=== PATIENT | male | born 1980 | race Caucasian/White ===

== ENCOUNTER 2019-09-10 20:33 | Emergency (ER) | payer OTHER ==
[~2019-09-10] VITALS: Ht 175.3 cm; Wt 113.4 kg
[2019-09-10 21:13] VITALS: BP_SYST 135
--- NOTE | 2019-09-10 21:22 | NUR ---
Placed in room 3 . Placed on padded products inspector trimmer, blood pressure machine and pulse oximeter. To gown for exam. Side rails up.
--- NOTE | 2019-09-10 21:25 | NUR ---
BROUGHT IN BY AMBULANCE FOR BILATERAL HAND CRAMPING,ETOH INTOXICATION.PLACED IN BED 3 AND HOOKED TO THE MONITOR. SEIZURE PRECAUTION IMPLEMENTED.
--- NOTE | 2019-09-10 21:26 | NUR ---
CAME BY BEDSIDE TO EVALUATE PT.
--- NOTE | 2019-09-10 21:50 | NUR ---
GAUGE 18 IV LINE ESTABLISHED TO THE RIGHT FOREARM. BLOOD DRAW ATTEMPTED BUT UNABLE. BLOOD DRAWN BY BILLING ASSOCIATE.
[2019-09-10 22:08] LABS: BASOPHILS % (AUTO) 0.6 % (0.0-2.0); EOSINOPHILS # (AUTO) 0.3 K/uL (0.0-0.4); EOSINOPHILS % (AUTO) 4.3 % (0.0-4.0); HEMATOCRIT 46.2 % (36-54); HEMOGLOBIN 15.6 g/dL (14.0-18.0); LYMPHOCYTES % (AUTO) 49.1 % (20.5-51.5); MEAN CORPUSCULAR HEMOGLOBIN 33 pg (27-31); MEAN CORPUSCULAR HGB CONC 34 % (32-36); MEAN CORPUSCULAR VOLUME 97 fL (79.0-98.0); MONOCYTES # (AUTO) 0.5 K/uL (0.0-1.0); NEUTROPHILS # (AUTO) 2.3 K/uL (1.8-7.7); PLATELET COUNT (AUTO) 154 K/uL (130-430); RED BLOOD CELL COUNT(AUTO) 4.78 MIL/uL (4.2-6.2); RED CELL DISTRIBUTION WIDTH 14.4 % (9.0-15.0); WHITE BLOOD COUNT (AUTO) 6.1 K/uL (4.8-10.8)
[2019-09-10 22:42] LABS: CALCIUM 8.2 mg/dL (8.4-11.0); CREATININE 0.75 mg/dL (0.55-1.30); POTASSIUM 3.6 mmol/L (3.5-5.1)
[2019-09-10 22:46] LABS: ALBUMIN 4.3 g/dL (3.4-4.8); PHENYTOIN (DILANTIN) 0.7 ug/mL (10.0-20.0); TOTAL BILIRUBIN 0.6 mg/dL (0.0-1.0)
--- NOTE | 2019-09-10 23:11 | NUR ---
ASLEEP, NOT IN ANY KIND OF DISTRESS. NO PAIN OR DISCOMFORT NOTED. BP=96/55. OTHERWISE STABLE AND ASYMPTOMATIC.
[2019-09-10] MEDS ORDERED: PHENYTOIN 100 MG CAPSULE PO ONE (23:45)
--- NOTE | 2019-09-10 23:49 | NUR ---
DILANTIN 500 MG PO GIVEN ORDERED.
--- NOTE | 2019-09-11 01:20 | NUR ---
ASLEEP, NOT IN ANY KIND OF DISTRESS. NO PAIN OR DISCOMFORT NOTED. VS REMAIN STABLE.
--- NOTE | 2019-09-11 02:40 | NUR ---
DISCHARGED STABLE. VERBAL AND WRITTEN AFTERCARE INSTRUCTIONS GIVEN. VERBALIZED UNDERSTANDING.
[2019-09-11 02:50] VITALS: BP_SYST 112
== END 2019-09-11 02:50 | disposition home or self-care (01) ==
LOC: SED 20:33 → EDSEX 20:33 → SED 09-11 02:50
DX: R56.9 Unspecified convulsions (principal); F10.10 Alcohol abuse, uncomplicated; Y90.8 Blood alcohol level of 240 mg/100 ml or more
CPT/HCPCS: 36415; 80053; 80185; 85025; 99284; G0482

== ENCOUNTER 2019-09-11 07:48 | Emergency (ER) | payer OTHER ==
[~2019-09-11] VITALS: Ht 165.1 cm; Wt 113.4 kg
[2019-09-11 07:52] VITALS: BP_SYST 152
--- NOTE | 2019-09-11 07:52 | NUR ---
Patient to ER bed 1 to gown for evaluation. Side rails up.
--- NOTE | 2019-09-11 07:55 | NUR ---
ER at bedside examining patient.
--- NOTE | 2019-09-11 07:55 | NUR ---
PT CAME TO ER BELIEVES HE IS HAVING SEIZURE. PT IS TACHYPNEIC, O2 WNL, AO4, RESTING IN BED
[2019-09-11] MEDS ORDERED: LORazepam 1 MG TABLET PO ONE (08:00)
--- NOTE | 2019-09-11 08:00 | NUR ---
Pt resting calmly no s/s of distress at this time
--- NOTE | 2019-09-11 08:05 | NUR ---
medicated the pt w/ Ativan PO per MD order.
--- NOTE | 2019-09-11 10:00 | NUR ---
pt is sleeping in bed. No signs of seizure activity noted.
[2019-09-11 11:12] VITALS: BP_SYST 138
--- NOTE | 2019-09-11 11:14 | NUR ---
pt was provided a taxi vocher to the address provided by the pt. Provided a meal. Pt has adequate clothing.
--- NOTE | 2019-09-11 11:14 | NUR ---
Patient given written and verbal discharge instructions and verbalizes understanding. ER MD discussed with patient the results and treatment provided. Patient in stable condition. ID arm band removed. Patient educated on pain management and to follow up with PMD. Pain Scale . Opportunity for questions provided and answered. Medication side effect fact sheet provided.
== END 2019-09-11 11:12 | disposition home or self-care (01) ==
LOC: SED 07:48
DX: F41.1 Generalized anxiety disorder (principal); F10.10 Alcohol abuse, uncomplicated; Z86.69 Personal history of other diseases of the nervous system and sense organs; Z86.59 Personal history of other mental and behavioral disorders; Z88.0 Allergy status to penicillin; Y90.9 Presence of alcohol in blood, level not specified
CPT/HCPCS: 99283